=== PATIENT | female | born 1970 | race African-American/Black ===

== ENCOUNTER 2017-02-27 15:05 | Emergency (ER) | payer SELFPAY ==
[2017-02-27 15:09] VITALS: BP 122/73
[2017-02-27] MEDS ORDERED: MORPHINE SULFATE 10 MG/ML INJ IV ONE (16:02)
--- NOTE | 2017-02-27 16:05 | ER Document Report ---
ED Medical Screen (RME) - General Chief Complaint: Sore Throat Stated Complaint: SORE THROAT/POSSIBLE FEVER Time Seen by Provider: 02/27/17 16:00 Notes: Patient reports a 3 day history of severe throat pain worse on the left. Is also had fevers. She states it hurts to swallow even liquids. Exam of patient- appears to have bilateral erythema and hypertrophy of her tonsils however the left tonsillar pillar and tonsil itself appeared to be significantly more swollen than the right. TRAVEL OUTSIDE OF THE [place] IN LAST 30 DAYS: No - Related Data Allergies/Adverse Reactions: latex [Latex] Allergy (Verified 02/27/17 15:08) Past Medical History - Social History Chew tobacco use (# tins/day): No Frequency of alcohol use: Occasional Drug Abuse: Marijuana Renal/ Medical History: Denies: Hx Peritoneal Dialysis Skin Medical History: Reports Hx Eczema Past Surgical History: Reports: Hx Section - x4, Hx Hysterectomy, Hx Orthopedic Surgery - back - Immunizations Immunizations up to date: Yes Hx Diphtheria, Pertussis, Tetanus Vaccination: Yes Physical Exam - Vital signs Vitals: Temp Pulse Resp BP Pulse Ox 99.5 F 67 16 122/73 98 02/27/17 15:08 02/27/17 15:08 02/27/17 15:08 02/27/17 15:08 02/27/17 15:08 Course - Vital Signs Vital signs: Temp Pulse Resp BP Pulse Ox 99.5 F 67 16 122/73 98 02/27/17 15:08 02/27/17 15:08 02/27/17 15:08 02/27/17 15:08 02/27/17 15:08
[2017-02-27 16:56] LABS: ABSOLUTE BASOPHILS # (AUTO) 0.1 10^3/uL (0.0-0.2); ABSOLUTE LYMPHOCYTES (AUTO) 2.9 10^3/uL (0.5-4.7); ABSOLUTE MONOCYTES (AUTO) 1.2 10^3/uL (0.1-1.4); ABSOLUTE NEUT (AUTO) 10.3 10^3/uL (1.7-8.2); BASOPHILS % (AUTO) 0.4 % (0-2); EOSINOPHILS % (AUTO) 0.2 % (0-6); HEMATOCRIT 40.7 % (36.0-47.0); HEMOGLOBIN 13.3 g/dL (12.0-15.5); HGB HCT DIFFERENCE -0.8; LYMPHOCYTES % (AUTO) 19.9 % (13-45); MEAN CORPUSCULAR HEMOGLOBIN 23.7 pg (27.0-33.4); MEAN CORPUSCULAR HGB CONC 32.6 g/dL (32.0-36.0); MEAN CORPUSCULAR VOLUME 73 fl (80-97); MONOCYTES % (AUTO) 8.1 % (3-13); RED CELL DISTRIBUTION WIDTH 15.2 % (11.5-14.0); SEGMENTED NEUTROPHILS % (AUTO) 71.4 % (42-78); WHITE BLOOD COUNT 14.5 10^3/uL (4.0-10.5)
[2017-02-27] MEDS ORDERED: KETOROLAC TROMETHAMINE INJ/PF 30 MG/1 ML SDV IV ONE (17:23)
[2017-02-27] MEDS ORDERED: CEFTRIAXONE 1 GM/D5W RTU 50 ML IV ONE (17:23)
[2017-02-27] MEDS ORDERED: METHYLPREDNISOLONE INJ 125 MG/2 ML SDV IV ONE (17:23)
[2017-02-27 17:25] LABS: ANION GAP 12 (5-19); BLOOD UREA NITROGEN 7 mg/dL (7-20); CALCIUM 9.7 mg/dL (8.4-10.2); CARBON DIOXIDE 31 mmol/L (22-30); CHLORIDE 98 mmol/L (98-107); CREATININE RESULT 0.65 mg/dL (0.52-1.25); GLUCOSE 88 mg/dL (75-110); POTASSIUM 3.7 mmol/L (3.6-5.0); SODIUM 141.3 mmol/L (137-145)
--- NOTE | 2017-02-27 17:29 | ER Document Report ---
ED ENT - General Mode of Arrival: Ambulatory Information source: Patient TRAVEL OUTSIDE OF THE [place] IN LAST 30 DAYS: No - HPI Patient complains to provider of: Throat problem Associated symptoms: Other - see above <ADA AGUIRRE - Last Filed: 02/27/17 18:51> <SAMANTHA CONNER - Last Filed: 02/27/17 19:41> - General Chief Complaint: Sore Throat Stated Complaint: SORE THROAT/POSSIBLE FEVER Time Seen by Provider: 02/27/17 16:00 Notes: Patient is a 46 year old female who presents to the ED with complaints of progressively worsening sore throat with onset Monday (02/21/2017). Patient also has had a fever of 103.8 but states the fever broke 2 days ago. (ADA AGUIRRE) - Related Data Allergies/Adverse Reactions: latex [Latex] Allergy (Verified 02/27/17 15:08) Past Medical History - General Information source: Patient - Social History Smoking Status: Current Every Day Smoker Chew tobacco use (# tins/day): No Frequency of alcohol use: Occasional Drug Abuse: Marijuana Family History: Reviewed & Not Pertinent Renal/ Medical History: Denies: Hx Peritoneal Dialysis Skin Medical History: Reports Hx Eczema Past Surgical History: Reports: Hx Section - x4, Hx Hysterectomy, Hx Orthopedic Surgery - back - Immunizations Immunizations up to date: Yes Hx Diphtheria, Pertussis, Tetanus Vaccination: Yes <ADA AGUIRRE - Last Filed: 02/27/17 18:51> Review of Systems - Review of Systems Constitutional: No symptoms reported, See HPI, Fever EENT: See HPI, Throat pain Cardiovascular: No symptoms reported Respiratory: No symptoms reported Gastrointestinal: No symptoms reported Genitourinary: No symptoms reported Female Genitourinary: No symptoms reported Musculoskeletal: No symptoms reported Skin: No symptoms reported Hematologic/Lymphatic: No symptoms reported Neurological/Psychological: No symptoms reported <ADA AGUIRRE - Last Filed: 02/27/17 18:51> Physical Exam <ADA AGUIRRE - Last Filed: 02/27/17 18:51> <SAMANTHA CONNER - Last Filed: 02/27/17 19:41> - Vital signs Vitals: Temp Pulse Resp BP Pulse Ox 99.5 F 67 16 122/73 98 02/27/17 15:08 02/27/17 15:08 02/27/17 15:08 02/27/17 15:08 02/27/17 15:08 - Notes Notes: GENERAL: Well-appearing, well nourished and in no acute distress. HEAD: Normocephalic, atraumatic. Eyes: Pupils equal, round, and reactive to light. Extraocular movements intact. ENT: Oral mucosa moist, tongue midline. Pharyngeal erythema. Swelling in left peritonsillar area, no exudate but is beefy red and tender to palpation. NECK: Full range of motion. Supple. Tender gland in anterior cervical neck. LUNGS: Clear to auscultation bilaterally, no wheezes, rales, or rhonchi. No respiratory distress. HEART: Regular rate and rhythm. No murmurs, gallops, or rubs. ABDOMEN: Soft, non-tender. Non-distended. Bowel sounds present in all 4 quadrants. EXTREMITIES: Normal ROM. No Edema. NEUROLOGICAL: Alert and oriented x3. Normal speech. No focal neurological deficits. PSYCH: Normal affect, normal mood. SKIN: Warm, dry, normal turgor. No rashes or lesions noted. (ADA AGUIRRE) Course - Laboratory Result Diagrams: 02/27/17 16:27 02/27/17 16:27 - Consults Dr. Wheat, ENT Time consulted: 18:46 Consulted provider: will come to ER <ADA AGUIRRE - Last Filed: 02/27/17 18:51> - Laboratory Result Diagrams: 02/27/17 16:27 02/27/17 16:27 <SAMANTHA CONNER - Last Filed: 02/27/17 19:41> - Vital Signs Vital signs: Temp Pulse Resp BP Pulse Ox 99.5 F 67 16 122/73 98 02/27/17 15:08 02/27/17 15:08 02/27/17 15:08 02/27/17 15:08 02/27/17 15:08 - Laboratory Laboratory results interpreted by me: 02/27/17 02/27/17 16:27 16:27 WBC 14.5 H RBC 5.60 H MCV 73 L MCH 23.7 L RDW 15.2 H Absolute Neutrophils 10.3 H Carbon Dioxide 31 H - Consults Dr. Wheat, ENT Reason for consultation: 02/27/17 18:46 Discussed patient. He is the ENT field application engineer for [facility] although not field application engineer for the ED he has agreed to come in to the ED to evaluate the patient to determine plan for treatment. (ADA AGUIRRE) Discharge <ADA AGUIRRE - Last Filed: 02/27/17 18:51> <SAMANTHA CONNER - Last Filed: 02/27/17 19:41> - Discharge Clinical Impression: Peritonsillar abscess Condition: Stable Disposition: HOME, SELF-CARE Additional Instructions: Kellie-Tonsillar Abscess: You have a kellie-tonsillar abscess, a pus-filled swelling adjacent to the tonsil. Some abscesses may be left to drain on their own, but most require opening or lancing. It may be a couple of days before the abscess is ready to naz or to differentiate an abscess from just local tissue infection called cellulitis. An antibiotic may prevent spread of the infection and a steroid medication may reduce the swelling. Once the abscess is opened, either on its own or by lancing it, the wound will heal with surprisingly little scar. Depending on the size of an abscess, healing can take one to four weeks. If you develop fever, chills, worsening pain, or increasing swelling in the area, call the doctor or return immediately. The major risk of a kellie- tonsillar abscess is that it may swell so much that it impinges on your airway and can lead to dangerous obstruction of your breathing. If that seems to be developing, you should seek immediate emergency re-evaluation and care. //////////////////////////////////////////////////////////////////////////////// //////////////////////////////////////////////////////////////////////////////// /////////////// Take medication as prescribed. Follow-up with Dr. Wheat at [facility] in 3 days. Call tomorrow to schedule an appointment. RETURN TO THE EMERGENCY ROOM IF ANY NEW OR WORSENING SYMPTOMS. Prescriptions: Clindamycin HCl 300 mg PO TID #30 capsule Referrals: YELENA WHEAT MD [[facility]] - 03/02/17 [facility] [Provider Group] - 03/02/17 Scribe Attestation: 02/27/17 18:51 I personally performed the services described in the documentation, reviewed and edited the documentation which was dictated to the scribe in my presence, and it accurately records my words and actions. (SAMANTHA CONNER) Scribe Documentation - Scribe Written by Patricio:: patricio Martinez, 02/27/2017, 1728 acting as scribe for :: Susan <ADA AGUIRRE - Last Filed: 02/27/17 18:51>
--- NOTE | 2017-02-27 18:36 | RADIOLOGY REPORT (SQ) ---
EXAM DESCRIPTION: CT SOFT TISSUE NECK WITH COMPLETED DATE/TIME: 02/27/2017 4:50 pm REASON FOR STUDY: r/o left peritonsillar abscess COMPARISON: None. TECHNIQUE: Post IV contrasted scanning from skull base through lung apices with review of bone, soft tissue and lung windows. Reconstructed coronal and sagittal MPR images reviewed. All images stored on PACS. All CT scanners at this facility use dose modulation, iterative reconstruction, and/or weight based d osing when appropriate to reduce radiation dose to as low as reasonably achievable (ALARA). [facility]: Dose Right [facility]: CareDose [facility]: Dose Right [facility]: Teradose 4D [facility]: [email or web address] CONTRAST TYPE AND DOSE: contrast/concentration: Isovue 370.00 mg/ml; Total Contrast Delivered: 68.0 ml; Total Saline Delivered: 55.0 ml RENAL FUNCTION: None required. The patient is less than 50 years old. RADIATION DOSE: . LIMITATIONS: None. FINDINGS: SKULL BASE: Intact. MAJOR SALIVARY GLANDS: No solid or cystic masses. No inflammatory changes. LYMPHADENOPATHY: No adenopathy. Prominent nonenlarged cervical lymph nodes are identified especially on the left MUCOSAL MASSES OR ASYMMETRY: There is soft tissue fullness in the left tonsillar region with a relati ve low density area being identified the appearance of which is consistent with a peritonsillar absce ss. Mass effect is seen with compression and displacement of the pharynx Lizbeth air column at this lev el. LARYNX/CORDS: No abnormal findings. VASCULAR STRUCTURES: The major vessels are patent. LUNG APICES: Clear. BONES: Intact. THYROID: Normal size. No masses. PARANASAL SINUSES: Clear. OTHER: No other significant finding. IMPRESSION: Findings consistent with a left peritonsillar abscess as noted above. Other findings as noted above TECHNICAL DOCUMENTATION: JOB ID: [id number] Quality ID # [id number]: Final reports with documentation of one or more dose reduction techniques (e.g., Au tomated exposure control, adjustment of the mA and/or kV according to patient size, use of iterative reconstruction technique) 2010 [employer]- All Rights Reserved
[2017-02-27] MEDS ORDERED: LIDOCAINE 1% INJ-PF (10 MG/ML) 30 ML SDV ONE (19:21)
[2017-02-27] MEDS ORDERED: BENZOCAINE 20% AEROSOL SPRAY 60 GM TP ONE (20:00)
--- NOTE | 2017-02-28 08:45 | PDOC CONSULTATION ---
Consultation Consult Date: 02/27/17 Attending physician:: SAMANTHA CONNER Consult reason:: Peritonsillar abscess left History of Present Illness History of Present Illness: GURMEET NAGEL is a 46 year old female 46-year-old black female with a 7 day history of left peritonsillar swelling, he has severe sore throat,, chills, seen a physician until this evening. No History of tonsil problems, reviewed and documented Past Medical History Cardiac Medical History: Reports: None Pulmonary Medical History: Reports: None EENT Medical History: Reports: None Neurological Medical History: Reports: None - Healthy 46-year-old black female Skin Medical History: Reports: Eczema Past Surgical History Past Surgical History: Reports: Section - x4, Hysterectomy, Orthopedic Surgery - back Social History Smoking Status: Current Every Day Smoker Family History Family History: Reviewed & Not Pertinent Parental Family History Reviewed: Yes Children Family History Reviewed: Yes Sibling(s) Family History Reviewed.: Yes Medication/Allergy Home Medications: Permethrin [Elimite] 60 gm TOP ONCE #1 cream.gm. 11/21/14 Azithromycin [Zithromax] 250 mg PO DAILY #5 tablet 04/20/15 Guaifenesin/Codeine Phosphate [Codeine-Guaifen 10-100 mg/5 ml] 5 - 10 ml PO Q6 # 200 liquid 04/20/15 Prednisone [Deltasone] 60 mg PO DAILY 5 Days 04/20/15 Clindamycin HCl 300 mg PO TID #30 capsule 02/27/17 Allergies/Adverse Reactions: latex [Latex] Allergy (Verified 02/27/17 15:08) Physical Exam Vital Signs: Temp Pulse Resp BP Pulse Ox 99.5 F 67 16 122/73 98 02/27/17 15:08 02/27/17 15:08 02/27/17 15:08 02/27/17 15:08 02/27/17 15:08 Intake & Output 02/26/17 02/27/17 02/28/17 06:59 06:59 06:59 Weight 69.1 kg Throat exam: PRESENT: tonsillogmegaly, other - Peritonsillar abscess Neck exam: PRESENT: lymphadenopathy Respiratory exam: PRESENT: clear to auscultation sada Cardiovascular exam: PRESENT: RRR GI/Abdominal exam: PRESENT: normal bowel sounds Rectal exam: PRESENT: deferred Extremities exam: PRESENT: full ROM Musculoskeletal exam: PRESENT: normal inspection Neurological exam: PRESENT: alert Psychiatric exam: PRESENT: anxious Skin exam: PRESENT: warm Additional comments: Throat examination performed. There is a 3 cm left peritonsillar abscess present, fluctuant drained in the emergency room under local anesthesia positive for left JG node enlargement. External auditory canals and tympanic membranes clear. Nasal findings. Chest clear to percussion auscultation, vascular system negative, no rubs, no murmur pulses palpable abdomen soft. No evidence of abscess formation in the neck Results Laboratory Results: 02/27/17 16:27 02/27/17 16:27 02/27/17 02/27/17 16:27 16:27 WBC 14.5 H RBC 5.60 H Hgb 13.3 Hct 40.7 MCV 73 L MCH 23.7 L MCHC 32.6 RDW 15.2 H Plt Count 263 Seg Neutrophils % 71.4 Lymphocytes % 19.9 Monocytes % 8.1 Eosinophils % 0.2 Basophils % 0.4 Absolute Neutrophils 10.3 H Absolute Lymphocytes 2.9 Absolute Monocytes 1.2 Absolute Eosinophils 0.0 Absolute Basophils 0.1 Sodium 141.3 Potassium 3.7 Chloride 98 Carbon Dioxide 31 H Anion Gap 12 BUN 7 Creatinine 0.65 Est GFR ( Amer) > 60 Est GFR (Non-Af Amer) > 60 Glucose 88 Calcium 9.7 Impressions: Soft Tissue Neck CT 02/27/17 16:01 IMPRESSION: Findings consistent with a left peritonsillar abscess as noted above. Other findings as noted above Assessment & Plan - Diagnosis (1) Plan: drainage of a left peritonsillar abscess - local anesthesia in the emergency room. Cleocin 300 mg tid x 10 days. Follow-up in 3 days ENT and consists of throat gargles q 4 hourly with ABX. Discharge from the ER.
--- NOTE | 2017-02-28 09:05 | [facility] OPERATIVE REPORT E ---
[facility] Operative Report NAME: GURMEET NAGEL AGE: 46Y DATE OF SURGERY: 02/27/2017 ROOM: PREOPERATIVE DIAGNOSIS: Left peritonsillar abscess. POSTOPERATIVE DIAGNOSIS: Left peritonsillar abscess. OPERATION: Drainage of peritonsillar abscess. SURGEON: YELENA WHEAT M.D. ANESTHESIA: Local - 1% Xylocaine. OPERATIVE INDICATIONS: A 46-year-old black female with significant tonsillitis and tonsil pain over a 7-day course. This has gone untreated. She presents to the emergency room with a left peritonsillar abscess verified with CT scan. Approximately 2-cm abscess present. Seen in Ear, Nose and Throat consultation and immediate drainage performed per this procedure. Risks and benefits of this discussed and accepted. She will require antibiotic coverage and followup. OPERATIVE PROCEDURE: The left tonsil abscess was visualized under direct vision. The area was infiltrated with 1% Xylocaine injection. An incision and drainage was performed with needle technique. A 19-gauge needle was used and the abscess entered, pus was removed. Multiple stabs were performed to allow for full drainage of this abscess. Irrigation performed. No culture was taken on this case. Total blood loss approximately 20 mL. The patient tolerated the procedure well. She was discharged from the emergency room in good condition. DICTATING PHYSICIAN: YELENA WHEAT M.D. [id number] PHY#: [id number] ID: [id number] JOB#: [id number] ACCT: [id number] cc:NO Fazal POPE M.D. MARSHALL B. FRINK, M.D. >
[2017-02-28] MEDS ORDERED: BENZOCAINE 20% AEROSOL SPRAY 60 GM TP SCH (10:00)
== END 2017-02-27 20:48 | disposition home or self-care (01) ==
LOC: ER 15:05
DX: J36 Peritonsillar abscess (principal); J02.9 Acute pharyngitis, unspecified; R50.9 Fever, unspecified; F17.200 Nicotine dependence, unspecified, uncomplicated
CPT/HCPCS: 99284; 36415; 87880; 85025; 80048; 70491; J3490; J2930; J1885; J2270; J0696

== ENCOUNTER 2018-02-27 16:33 | Emergency (ER) | payer SELFPAY ==
[2018-02-27] MEDS ORDERED: AMPICILLIN SOD/SULBACTAM 3 GM VIAL IV ONE (17:52)
[2018-02-27] MEDS ORDERED: DIPH/PERTUSS(ACELL)/TETANUS VAC/PF 0.5 ML SYR (>=10YO) IM ONE (17:52)
[2018-02-27] MEDS ORDERED: MORPHINE SULFATE 10 MG/ML INJ IV ONE (17:53)
[2018-02-27] MEDS ORDERED: DIPHENHYDRAMINE HCL 50 MG/ML VIAL IV ONE (17:53)
[2018-02-27] MEDS ORDERED: ONDANSETRON HCL INJ/PF 4 MG/2 ML SDV IV ONE (17:54)
--- NOTE | 2018-02-27 17:56 | ER Document Report ---
ED Medical Screen (RME) - General Mode of Arrival: Ambulatory Information source: Patient TRAVEL OUTSIDE OF THE [place] IN LAST 30 DAYS: No <YELENA GOODMAN - Last Filed: 02/27/18 17:54> <SANGEETA HUNTLEY - Last Filed: 02/27/18 19:09> - General Chief Complaint: Cat Bite Stated Complaint: POSSIBLE BITE Time Seen by Provider: 02/27/18 17:40 Notes: This is a 47-year-old female bitten by her cat yesterday at 10:30 PM. She presents to the emergency room with swelling of the left hand, nausea, low- grade fever and headache. This is patient's But the cat is an outside cat who is not been vaccinated against rabies. Additionally, she states that the cat recently had an altercation with a raccoon. Last tetanus shot as a child. Patient states she had no problems with the vaccine. Her allergy to latex is itching. (YELENA GOODMAN) - Related Data Allergies/Adverse Reactions: latex [Latex] Allergy (Verified 02/27/18 17:48) Past Medical History - Social History Chew tobacco use (# tins/day): No Frequency of alcohol use: None Drug Abuse: None Renal/ Medical History: Denies: Hx Peritoneal Dialysis Skin Medical History: Reports Hx Eczema Past Surgical History: Reports: Hx Section - x4, Hx Hysterectomy, Hx Orthopedic Surgery - back, hip - Immunizations Immunizations up to date: Yes Hx Diphtheria, Pertussis, Tetanus Vaccination: Yes <YELENA GOODMAN - Last Filed: 02/27/18 17:54> - Vital signs Vitals: Temp Pulse Resp BP Pulse Ox 98.2 F 66 16 132/92 H 100 02/27/18 16:50 02/27/18 16:50 02/27/18 16:50 02/27/18 16:50 02/27/18 16:50 Course - Laboratory Result Diagrams: 02/27/18 18:23 02/27/18 18:23 <SANGEETA HUNTLEY - Last Filed: 02/27/18 19:09> - Vital Signs Vital signs: Temp Pulse Resp BP Pulse Ox 98.2 F 66 16 132/92 H 100 02/27/18 16:50 02/27/18 16:50 02/27/18 16:50 02/27/18 16:50 02/27/18 16:50 - Laboratory Laboratory results interpreted by me: 02/27/18 02/27/18 18:23 18:23 WBC 11.7 H RBC 5.93 H MCV 73 L MCH 23.6 L RDW 15.8 H Total Protein 8.6 H
[2018-02-27 18:46] LABS: ABSOLUTE BASOPHILS # (AUTO) 0.1 10^3/uL (0.0-0.2); ABSOLUTE EOSINOPHILS # (AUTO) 0.1 10^3/uL (0.0-0.6); ABSOLUTE MONOCYTES (AUTO) 0.9 10^3/uL (0.1-1.4); ABSOLUTE NEUT (AUTO) 7.6 10^3/uL (1.7-8.2); BASOPHILS % (AUTO) 1.2 % (0-2); EOSINOPHILS % (AUTO) 0.9 % (0-6); HEMATOCRIT 43.3 % (36.0-47.0); LYMPHOCYTES % (AUTO) 25.5 % (13-45); MEAN CORPUSCULAR HEMOGLOBIN 23.6 pg (27.0-33.4); MEAN CORPUSCULAR HGB CONC 32.3 g/dL (32.0-36.0); MEAN CORPUSCULAR VOLUME 73 fl (80-97); MONOCYTES % (AUTO) 7.3 % (3-13); PLATELET COUNT 255 10^3/uL (150-450); RED BLOOD COUNT 5.93 10^6/uL (3.72-5.28); RED CELL DISTRIBUTION WIDTH 15.8 % (11.5-14.0); SEGMENTED NEUTROPHILS % (AUTO) 65.1 % (42-78); TOTAL CELLS COUNTED % (AUTO) 100 %; WHITE BLOOD COUNT 11.7 10^3/uL (4.0-10.5)
[2018-02-27 19:04] LABS: ALANINE AMINOTRANSFERASE 34 U/L (9-52); ALBUMIN 4.7 g/dL (3.5-5.0); ALKALINE PHOSPHATASE 107 U/L (38-126); ANION GAP 13 (5-19); ASPARTATE AMINO TRANSFERASE 33 U/L (14-36); BILIRUBIN,DIRECT 0.2 mg/dL (0.0-0.4); BILIRUBIN,TOTAL 0.9 mg/dL (0.2-1.3); BLOOD UREA NITROGEN 13 mg/dL (7-20); CALCIUM 10.1 mg/dL (8.4-10.2); CARBON DIOXIDE 29 mmol/L (22-30); CHLORIDE 101 mmol/L (98-107); GLUCOSE 85 mg/dL (75-110); POTASSIUM 4.6 mmol/L (3.6-5.0); SODIUM 143.2 mmol/L (137-145); TOTAL PROTEIN 8.6 g/dL (6.3-8.2)
--- NOTE | 2018-02-27 19:22 | ER Document Report ---
ED General - General Chief Complaint: Cat Bite Stated Complaint: POSSIBLE BITE Time Seen by Provider: 02/27/18 17:40 Mode of Arrival: Ambulatory TRAVEL OUTSIDE OF THE [place] IN LAST 30 DAYS: No - HPI Notes: 47-year-old left-handed female presents with Bite and hand swelling and pain. States last night her cat bit her several times in the left hand. It is a stray cat that she is Now for several weeks. She does not believe it is had any shots. She is contacted animal [employer] and they told her to come here. Describes throbbing aching pain in her left dorsal hand. No drainage. No fever. Sudden onset, nonradiating. The cat is still in custody at her house. She is supposed to surrender the [employer] later today. No other modifying factors, no other associated symptoms, no other provocative or palliative factors. - Related Data Allergies/Adverse Reactions: latex [Latex] Allergy (Verified 02/27/18 17:48) Past Medical History - General Information source: Patient - Social History Smoking Status: Current Every Day Smoker Chew tobacco use (# tins/day): No Frequency of alcohol use: None Drug Abuse: None Family History: Reviewed & Not Pertinent Patient has suicidal ideation: No Patient has homicidal ideation: No - Medical History Medical History: Negative Renal/ Medical History: Denies: Hx Peritoneal Dialysis Skin Medical History: Reports Hx Eczema Past Surgical History: Reports: Hx Section - x4, Hx Hysterectomy, Hx Orthopedic Surgery - back, hip - Immunizations Immunizations up to date: Yes Hx Diphtheria, Pertussis, Tetanus Vaccination: Yes Review of Systems - Review of Systems Notes: Review of systems as in history of present illness, otherwise no significant headache, chest pain, abdominal pain. Physical Exam - Vital signs Vitals: Temp Pulse Resp BP Pulse Ox 98.2 F 66 16 132/92 H 100 02/27/18 16:50 02/27/18 16:50 02/27/18 16:50 02/27/18 16:50 02/27/18 16:50 - Notes Notes: General: Well devloped, no acute distress. HEENT: Normocephalic, atraumatic. Pupils equal round reactive to light. Mucosa moist. No JVD. Chest: No trauma, normal excursion. Respiratory: Good air exchange, normal excursion. Cardiac: Regular rhythm Abdomen: Soft, benign. Nondistended. Back: No asymmetry or gross abnormality. Motor: Grossly normal power and tone. Neurologic: Alert, nonfocal. Vascular: Well perfused Skin: No petechiae or purpura Left hand is swollen, no purulence, mild erythema. Course - Re-evaluation Re-evalutation: 02/27/18 19:20 Well-appearing female with Bites, high risk for infection and has clear evidence of inflammation and infection. No evidence of abscess. She was seen by physician in triage ordered labs, these are reviewed and are unremarkable including CBC and chemistries. Received IV Unasyn, will be discharged home with Augmentin. She is declined rabies as the cat is in custody, she understands that if the cat somehow was not able to be turned over to be observed she must have rabies shots that she is high risk. - Vital Signs Vital signs: Temp Pulse Resp BP Pulse Ox 98.2 F 66 16 132/92 H 100 02/27/18 16:50 02/27/18 16:50 02/27/18 16:50 02/27/18 16:50 02/27/18 16:50 - Laboratory Result Diagrams: 02/27/18 18:23 02/27/18 18:23 Laboratory results interpreted by me: 02/27/18 02/27/18 18:23 18:23 WBC 11.7 H RBC 5.93 H MCV 73 L MCH 23.6 L RDW 15.8 H Total Protein 8.6 H Discharge - Discharge Clinical Impression: Cellulitis Cat bite Qualifiers: Encounter type: sequela Qualified Code(s): W55.01XS - Bitten by cat, sequela Disposition: HOME, SELF-CARE Instructions: Animal Bites ([facility]), Cellulitis ([facility]) Additional Instructions: Follow-up with your primary care physician tomorrow Prescriptions: Amox Tr/Potassium Clavulanate [Augmentin 875-125 Tablet] 1 tab PO BID 10 Days tablet
[2018-02-27 19:55] VITALS: BP 151/79
== END 2018-02-27 20:19 | disposition home or self-care (01) ==
LOC: ER 16:33
DX: L03.114 Cellulitis of left upper limb (principal); F17.200 Nicotine dependence, unspecified, uncomplicated; W55.01XS Bitten by cat, sequela; Z91.040 Latex allergy status; Z90.710 Acquired absence of both cervix and uterus
CPT/HCPCS: 99283; 90471; 96375; 96365; 36415; 85025; 80053; 90715; J1200; J0295; J2270; J2405